=== PATIENT | female | born 1975 | race Caucasian/White ===

== ENCOUNTER → 2021-01-27 | Day surgery (SDC) | payer OTHER ==
[~2021-01-27] VITALS: Ht 160 cm; Wt 77.1 kg
[~2021-01-27] MED LIST: COLACE100 MG PO; FLEXERIL5 MG PO; IBUPROFEN800 M1 PO; IRON325 M1 PO; NAPROXEN500 MG PO; PERCOCET 5-3251 EACH PO; SYNTHROID50 MCG PO; ZOFRAN4 M1 PO
[2021-01-27 07:18] LABS: HCG (URINE) SCREEN NEGATIVE (NEGATIVE)
== END | disposition home or self-care (01) ==
LOC: FAS 06:53
PROVIDERS: Obstetrics & Gynecology
DX: D25.9 Leiomyoma of uterus, unspecified (principal); D64.9 Anemia, unspecified; N84.0 Polyp of corpus uteri; N92.1 Excessive and frequent menstruation with irregular cycle; E03.9 Hypothyroidism, unspecified; Z20.822 Contact with and (suspected) exposure to COVID-19; Z98.51 Tubal ligation status; Z79.899 Other long term (current) drug therapy; Z82.62 Family history of osteoporosis
CPT/HCPCS: 84703; J2250; J2405; J2550; J3010; J7120

== ENCOUNTER 2021-03-16 08:03 | Day surgery (SDCO) | payer OTHER ==
[~2021-03-16] VITALS: Ht 160 cm; Wt 79.4 kg
[~2021-03-16 08:03] MED LIST changes: -COLACE100 MG PO; -IRON325 M1 PO; -PERCOCET 5-3251 EACH PO; -ZOFRAN4 M1 PO
[2021-03-16 08:21] LABS: HCG (URINE) SCREEN NEGATIVE (NEGATIVE)
[2021-03-16 08:58] LABS: HCT 31.6 % (37.0-47.0); HGB 10.2 g/dl (12.5-16.0); MCH 25.7 pg (25.0-31.0); MCHC 32.3 g/dL (32.0-36.0); MCV 79.6 fL (78.0-100.0); MPV 10.5 fL (6.0-9.5); RBC 3.97 M/uL (4.20-5.40); RDW 16.5 % (11.5-14.0); WBC 6.9 K/uL (4.0-10.5)
[2021-03-16] MEDS ORDERED: COLACE100 MG PO (09:23)
[2021-03-16] MEDS ORDERED: PERCOCET 5-3251 EACH PO (09:23)
[2021-03-16] MEDS ORDERED: ZOFRAN4 M1 PO (09:23)
[2021-03-16] MEDS ORDERED: IBUPROFEN800 M1 PO (09:23)
[2021-03-17 05:56] LABS: HGB 8.1 g/dl (12.5-16.0); MCH 25.6 pg (25.0-31.0); MCHC 31.2 g/dL (32.0-36.0); MCV 82.3 fL (78.0-100.0); MPV 10.2 fL (6.0-9.5); RBC 3.16 M/uL (4.20-5.40); RDW 16.6 % (11.5-14.0)
--- NOTE | 2021-03-17 06:13 | NUR ---
TYSON REMOVED PER ORDER , TOLERATED WELL 200CC OF DARK YELLOW URINE
[2021-03-17] MEDS ORDERED: IRON325 M1 PO (09:25)
== END 2021-03-17 17:00 | disposition home or self-care (01) ==
LOC: FSDC 08:03 → FMS 08:03
PROVIDERS: ADMIT Obstetrics & Gynecology
DX: D25.1 Intramural leiomyoma of uterus (principal); N80.0 Endometriosis of uterus; N73.6 Female pelvic peritoneal adhesions (postinfective); N72 Inflammatory disease of cervix uteri; N83.8 Other noninflammatory disorders of ovary, fallopian tube and broad ligament; E03.9 Hypothyroidism, unspecified; D64.9 Anemia, unspecified; R33.8 Other retention of urine; F41.9 Anxiety disorder, unspecified; Z79.899 Other long term (current) drug therapy
CPT/HCPCS: 36415; 84703; 86850; 86900; 86901; C9113; G0378; J0690; J1100; J1170; J1885; J2250; J2405; J2550; J2704; J2916; J3010; J7120; J7121